=== PATIENT | female | born 2000 | race Caucasian/White ===

== ENCOUNTER 2019-05-20 23:51 | Emergency (ER) | payer MEDICAID ==
[~2019-05-20] VITALS: Ht 149.9 cm; Wt 53.0 kg
[2019-05-21 00:11] VITALS: BP 115/71
== END 2019-05-21 04:35 | disposition left against medical advice (07) ==
LOC: ER 23:51
DX: R50.9 Fever, unspecified (principal); Z53.21 Procedure and treatment not carried out due to patient leaving prior to being seen by health care provider